=== PATIENT | male | born 1965 | race Caucasian/White ===

== ENCOUNTER 2016-12-09 07:08 | Day surgery (SDC) | payer MEDICARE ==
[~2016-12-09] VITALS: Ht 170.2 cm; Wt 99.8 kg
[~2016-12-09 07:08] MED LIST: 0.9% Sodium Chloride 1,000 ML IV SCH; AMOX1TAB PO; DIVA500T6 PO; LEVO25CA2 PO; METF500T4 PO; METH750T3 PO; PROT40T PO; QUET300T70 PO; Sodium Chloride LOK Flush 10 mL Syringe IV PRN; TEMA30CA PO; TERB250T11 PO; [UNRECOGNIZED DRUG - CODE] PO; fentaNYL-PF 50 mCg/mL 2 mL Inj IVPUSH PRN
[2016-12-09 07:55] VITALS: BP 132/90; PULSE 70; RESP 15; O2SAT 95
[2016-12-09 08:31] VITALS: BP 127/82; PULSE 73; RESP 16; O2SAT 93
[2016-12-09 08:42] VITALS: BP 129/91; PULSE 76; RESP 16; O2SAT 97
--- NOTE | 2016-12-09 11:12 | ENDO ---
[address] [address] ENDOSCOPY PROCEDURE PATIENT: JAMAL LICONA : 1965 MR#: [id number] ADMIT: 12/09/2016 JOB ID: [id number] DATE: 12/09/2016 PRIMARY PROVIDER: Dr. Florez PROCEDURE: Colonoscopy. INDICATIONS: A 51-year-old male reports for colon cancer screening. EQUIPMENT: PCF-H180-AL. SEDATION: 1. Versed 4 mg. 2. Fentanyl 75 mcg. COMPLICATIONS: None identified. BOWEL PREPARATION: Fair, adequate exam. PROCEDURE INFO: After the risks and benefits were explained, written and verbal informed consent was obtained. The patient was brought into the endoscopy suite and placed into the left lateral decubitus position. Sedation was achieved as above. A digital rectal examination accomplished, no significant pathology appreciated. The scope was introduced into the rectum and advanced under direct visualization to the level of the cecum, as identified by the appendiceal orifice and ileocecal valve. The scope was slowly withdrawn to carefully examine the mucosa for any defects or lesions. Multiple direct views were made through the dentate line for exclusion of pathology. The colon was decompressed. The scope removed from the patient who tolerated the procedure well. FINDINGS: No significant polyps, mass lesions, or inflammatory features identified throughout. ENDOSCOPIC DIAGNOSES: Visually unremarkable colonoscopy to cecum. RECOMMENDATIONS: Repeat colonoscopy in 10 years' time, sooner should symptoms warrant. Cc: Dr. Florez at [facility]
== END 2016-12-09 23:59 | disposition home or self-care (01) ==
LOC: END 07:08
PROVIDERS: ATTEND Internal Medicine Gastroenterology
DX: Z12.11 Encounter for screening for malignant neoplasm of colon (principal)
CPT/HCPCS: G0121; G0500; J2250; J3010; J7030